=== PATIENT | female | born 1955 | race Two or more races ===

== ENCOUNTER 2017-10-03 15:43 | Emergency (ER) | payer OTHER ==
[~2017-10-03] VITALS: Ht 165.1 cm; Wt 90.0 kg
[2017-10-03] MEDS ORDERED: MAGN300C PO (16:24)
[2017-10-03] MEDS ORDERED: DILT60CA PO (16:24)
[2017-10-03] MEDS ORDERED: LOPE2CAP94 PO (16:24)
[2017-10-03] MEDS ORDERED: PANT40TA5 PO (16:24)
[2017-10-03] MEDS ORDERED: POTA10TA31 PO (16:24)
[2017-10-03] MEDS ORDERED: RANI150C PO (16:24)
[2017-10-03] MEDS ORDERED: DIAZ10TA PO (16:24)
[2017-10-03] MEDS ORDERED: VALS1TAB15 PO (16:24)
[2017-10-03] MEDS ORDERED: ALBU1.25 NEB (16:24)
[2017-10-03] MEDS ORDERED: ONDANSETRON 2MG/ML, 2ML ONE (16:28)
[2017-10-03] MEDS ORDERED: PANTOPRAZOLE 40 MG IV ONE (16:28)
[2017-10-03] MEDS ORDERED: morphine SULFATE 10 MG/ML, 1ML ONE (16:28)
[2017-10-03] MEDS ORDERED: MORPHINE SULFATE 4 MG/ML, 1ML IVPush PRN (16:30)
[2017-10-03] MEDS ORDERED: PANTOPRAZOLE 40 MG IV IVPush ONE (16:30)
[2017-10-03] MEDS ORDERED: SODIUM CHLORIDE FLUSH 10ML SYR IVF ONE (16:30)
[2017-10-03] MEDS ORDERED: ONDANSETRON 2MG/ML, 2ML IVPush ONE (16:30)
[2017-10-03 16:49] LABS: HEMATOCRIT 36.3 % (34.6-47.8); HEMOGLOBIN 12.4 g/dL (11.7-16.4); WHITE BLOOD COUNT 8.3 x10^3/uL (3.4-10)
[2017-10-03 16:57] LABS: ASPARTATE AMINO TRANSFERASE 25 U/L (15-37); BLOOD UREA NITROGEN 5 mg/dL (7-18)
[2017-10-03] MEDS ORDERED: DIPHENHYDRAMINE 50 MG/ML, 1ML ONE (17:24)
[2017-10-03] MEDS ORDERED: DIPHENHYDRAMINE 50 MG/ML, 1ML IVPush ONE (17:30)
[2017-10-03 19:17] VITALS: BP 131/73
== END 2017-10-03 19:59 | disposition home or self-care (01) ==
LOC: ED 19:53
DX: N39.0 Urinary tract infection, site not specified (principal); R19.7 Diarrhea, unspecified; I12.9 Hypertensive chronic kidney disease with stage 1 through stage 4 chronic kidney disease, or unspecified chronic kidney disease; N18.3 Chronic kidney disease, stage 3 (moderate); J44.9 Chronic obstructive pulmonary disease, unspecified; K21.9 Gastro-esophageal reflux disease without esophagitis; F41.0 Panic disorder [episodic paroxysmal anxiety]; Z95.0 Presence of cardiac pacemaker
CPT/HCPCS: 36415; 71010; 80053; 81001; 82010; 83605; 83690; 83880; 85025; 87086; 93005; 96374; 96375; 99285; C9113; J1200; J2405